=== PATIENT | female | born 1965 | race Caucasian/White ===

== ENCOUNTER → 2017-06-07 | Outpatient (CLI) | payer OTHER ==
[2017-06-07 18:36] LABS: Blood Urea Nitrogen 12 mg/dL (7-17)
--- NOTE | 2017-06-07 19:46 | CT ---
EXAMINATION TYPE: CT urogram wo/w con DATE OF EXAM: 06/07/2017 HISTORY: Hematuria and frequent UTI's. CT DLP: 706.2mGycm Automated Exposure Control for Dose Reduction was Utilized. CONTRAST: CT scan of the abdomen and pelvis is performed with IV Contrast, patient injected with 100ml mL of Om nipaque 350. COMPARISON: None. FINDINGS: Lung bases are clear. There is no pleural effusion. The liver spleen pancreas gallbladder appear norm al. Bile ducts are not dilated. Kidneys have normal size and contour. There is no hydronephrosis. The re is no evidence of a renal mass. There is no adrenal mass. There is satisfactory contrast opacifica tion. There is no retroperitoneal adenopathy. Ureters are not dilated. The bladder distends smoothly. There is no evidence of a pelvic mass. There is no ascites. I see no intestinal wall thickening. The re are no dilated loops. I see no bony destructive process. Appendix is not seen. Normal appendix. Conclusion Negative CT scan of the abdomen and pelvis. No evidence of urinary tract abnormality.
== END | disposition home or self-care (01) ==
LOC: RADCTMAIN 17:58
PROVIDERS: ATTEND Urology
DX: R31.9 Hematuria, unspecified (principal); Z88.1 Allergy status to other antibiotic agents
CPT/HCPCS: 82565; 84520; 74178; 36415; 74400; Q9967

== ENCOUNTER → 2017-08-23 | Outpatient (CLI) | payer OTHER ==
--- NOTE | 2017-08-25 11:13 | MM ---
Reason for exam: screening (asymptomatic). Last mammogram was performed 1 year and 8 months ago. History: Patient is postmenopausal. Family history of breast cancer in maternal grandmother at age 70. Physical Findings: A clinical breast exam by your physician is recommended on an annual basis and results should be correlated with mammographic findings. MG Screening Mammo w CAD Bilateral CC and MLO view(s) were taken. Prior study comparison: December 24, 2015, mammogram, performed at [facility]. October 19, 2011, mammogram, performed at [facility]. The breast tissue is heterogeneously dense. This may lower the sensitivity of mammography. Finding: There are stable, fine, diffuse/scattered calcifications in the left breast. No significant changes in finding since December 24, 2015 and October 19, 2011. ASSESSMENT: Benign, BI-RAD 2 RECOMMENDATION: Routine screening mammogram of both breasts in 1 year.
== END | disposition home or self-care (01) ==
LOC: RADMAMWWP 14:32
PROVIDERS: ATTEND Family Medicine
DX: Z12.31 Encounter for screening mammogram for malignant neoplasm of breast (principal)
CPT/HCPCS: 77067

== ENCOUNTER → 2019-03-23 | Outpatient (CLI) | payer OTHER ==
--- NOTE | 2019-03-25 04:45 | CT ---
EXAMINATION TYPE: CT abdomen pelvis wo/w con DATE OF EXAM: 03/23/2019 COMPARISON: 06/07/2017 HISTORY: 53-year-old female Frequent UTIs. TECHNIQUE: Contiguous axial scanning of the abdomen and pelvis before and after administration of 100 ml Isovue 300 IV contrast. Delayed images through the kidneys and coronal/sagittal reconstructions performed. CT DLP: 617.9 mGycm Automated exposure control for dose reduction was used. FINDINGS: Heart normal size without pericardial effusion. Lung bases show some mild stranding posterior left ba silar atelectasis. No pleural effusion. No focal liver lesion or biliary ductal dilatation. Portal venous system is patent. Gallbladder, right adrenal gland, kidneys, spleen, and pancreas appear within normal limits. No nephrolithiasis or hydronephrosis. Symmetric uptake and excretion of contrast from both kidneys. Mild diffuse thickening of the left adrenal gland is unchanged. No dilated small bowel, free fluid, or free air. No mesenteric or retroperitoneal lymphadenopathy. Normal appendix. Oral contrast progressed to the rectum. No pericolonic inflammatory change. Small fatty umbilical hernia. Bladder partially distended. Uterus is anteverted. Both ovaries are visualized. Possible 2.1 cm cysti c structure within the left ovary versus 1.5 cm on 06/07/2017. No abnormal fluid collection in the pel vis or pelvic lymphadenopathy. 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 Mild multilevel degenerative disc disease wi th bulging discs. IMPRESSION: 1. NO NEPHROLITHIASIS OR HYDRONEPHROSIS. 2. NO ACUTE INFLAMMATORY PROCESS IDENTIFIED IN THE ABDOMEN OR PELVIS. 3. A 2.1 CM POSSIBLE CYSTIC STRUCTURE OF THE LEFT OVARY INCREASED IN SIZE FROM 1.5 CM ON 06/07/2017. C ORRELATE WITH PATIENT'S MENOPAUSAL STATUS. IF POSTMENOPAUSAL, FURTHER ULTRASOUND EVALUATION IS RECOMM ENDED.
== END | disposition home or self-care (01) ==
LOC: RADCTMAIN 09:20
PROVIDERS: ATTEND Family Medicine
DX: N30.90 Cystitis, unspecified without hematuria (principal); Z88.1 Allergy status to other antibiotic agents
CPT/HCPCS: 74178; Q9967 ×2

== ENCOUNTER → 2019-04-19 | Outpatient (CLI) | payer OTHER ==
--- NOTE | 2019-04-19 09:26 | US ---
EXAMINATION TYPE: US pelvis complete transvag DATE OF EXAM: 04/19/2019 COMPARISON: CT March 23, [address] June 07, 2014 CLINICAL HISTORY: N39.0 RECURRENT UTI,N83.202 LT OVARIAN CYST. TECHNIQUE: Transvaginal (TV) and Transabdominal (TA) . Transabdominal sonographic images of the pel vis were acquired. Transvaginal sonographic images were medically necessary to better assess the fol lowing anatomy: left ovary. Date of LMP: postmenopausal, no HRT. EXAM MEASUREMENTS: Uterus: 7.1 x 2.7 x 3.8 cm Endometrial Stripe: 0.3 cm Right Ovary: 1.6 x 2.5 x 1.3 cm Left Ovary: 1.5 x 1.3 x 1.4 cm 1. Uterus: Anteverted wnl 2. Endometrium: wnl 3. Right Ovary: wnl 4. Left Ovary: apparent para ovarian cyst measures 1.9 x 2.0 x 1.7 cm. 5. Bilateral Adnexa: wnl 6. Posterior cul-de-sac: no free fluid IMPRESSION: Simple appearing 2.0 cm thin walled cyst left adnexa felt paraovarian location. It is sl ightly increased in size from May 2017. Still favored benign given paraovarian location. Consider surveillance imaging in one year
== END | disposition home or self-care (01) ==
LOC: RADUSWWP 08:49
PROVIDERS: ATTEND Family Medicine
DX: N83.292 Other ovarian cyst, left side (principal); Z88.1 Allergy status to other antibiotic agents
CPT/HCPCS: 76830; 76856

== ENCOUNTER → 2023-07-31 | Outpatient (CLI) | payer OTHER ==
--- NOTE | 2023-07-31 11:13 | CTL ---
EXAMINATION TYPE: CT Low Dose Lung DATE OF EXAM ORDERED: 07/31/2023 HISTORY: . Lung cancer screening CT DLP: 66.[address] CTDI: 1.7 mGy Automated exposure control for dose reduction was used. SCREENING VISIT: Initial. COMPARISON: 05/26/2010. TECHNIQUE: Low dose computed tomography scan was performed through the chest at 1 mm thick sections a nd reconstructed images in multiple planes at 1 mm and [address] DIAGNOSTIC QUALITY: Satisfactory FINDINGS: LUNG NODULES: LUNGS: COPD: Severity: None Fibrosis: Severity: None Lymph nodes: No adenopathy. Other findings: RIGHT PLEURAL SPACE: Effusion: None Calcification: None Thickening: None Pneumothorax: None LEFT PLEURAL SPACE: Effusion: None Calcification: None Thickening: None Pneumothorax: None HEART: Heart Size: Normal Coronary Calcification: None Pericardial Effusion: None OTHER FINDINGS: Upper abdomen: None Bony thorax: None Supraclavicular region: None Other: None IMPRESSION: 1. Negative lung cancer screening examination for significant pulmonary nodules. 2. Mild smoking related change. 3. No acute findings. CT LUNG RAD AND CT CHEST RECOMMENDATION: Lung-Rad 1 Negative: Continue annual screening with LDCT in 12 months.
== END | disposition home or self-care (01) ==
LOC: RADCTMAIN 09:25
PROVIDERS: ATTEND Family Medicine
DX: Z12.2 Encounter for screening for malignant neoplasm of respiratory organs (principal); F17.210 Nicotine dependence, cigarettes, uncomplicated
CPT/HCPCS: 71271

== ENCOUNTER → 2024-08-30 | Outpatient (CLI) | payer OTHER ==
--- NOTE | 2024-09-02 16:41 | CTL ---
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 TECHNIQUE: Low dose computed tomography scan was performed through the chest at 1 mm thick sections a nd reconstructed images in multiple planes at 1 mm and [address] DLP: 82.9 mGycm, CT CTDI: 2.0 mGy, Automated exposure control for dose reduction was used. CT DIAGNOSTIC QUALITY: Satisfactory FINDINGS: r the heart is normal size without pericardial effusion. Aorta normal caliber with conventional arch vessel branching anatomy. Scattered nonenlarged mediastinal lymph nodes. No thoracic lymphadenopathy by CT size criteria. Promi nent extension of the left thyroid lobe posteriorly along the left lateral wall of the esophagus, unc hanged. Strandy atelectasis and scarring at the lower lungs. Mild diffuse bronchial wall thickening. Mild emp hysematous change. Mild biapical pleural-parenchymal scarring. No consolidation or pleural effusion. 4 mm lateral right lower lung pulmonary nodule, axial image 188 appears new. 4 mm anterior left upper lung pulmonary nodule, axial image 58 is unchanged. 3 mm anterior lingular pulmonary nodule, axial image 134 appears new. Visualized upper abdomen shows no gross abnormality. Bones: Mild degenerative disc disease throughout. Some degenerative change at the sternomanubrial gia nt. IMPRESSION: 1. Lung RADS 2, benign. A few scattered pulmonary nodules measuring up to 4 mm. There is a 3 mm nodul e and 4 mm nodule which appear new on annual follow-up. 2. COPD with mild emphysema and scattered strandy scarring. Recommend smoking cessation. CT LUNG RAD AND CT CHEST RECOMMENDATION: Lung-Rad 2 Benign Appearance or Behavior: Continue annual sc reening with LDCT in 12 months. S Modifier (other clinically significant findings): None [facility], , 09/02/2024 4:39 PM
== END | disposition home or self-care (01) ==
LOC: RADCTMAIN 15:37
PROVIDERS: ATTEND Family Medicine
DX: Z12.2 Encounter for screening for malignant neoplasm of respiratory organs (principal); F17.210 Nicotine dependence, cigarettes, uncomplicated; R91.8 Other nonspecific abnormal finding of lung field; J43.9 Emphysema, unspecified; J44.9 Chronic obstructive pulmonary disease, unspecified; R91.1 Solitary pulmonary nodule
CPT/HCPCS: 71271

== ENCOUNTER → 2024-12-18 | Outpatient (CLI) | payer OTHER ==
--- NOTE | 2024-12-18 14:33 | US ---
EXAMINATION TYPE: US kidneys/renal and bladder DATE OF EXAM: 12/18/2024 COMPARISON: CLINICAL INDICATION: Female, 59 years old with history of N30.100 INTERTITIAL CYSTITIS; Cystitis, melo quent UTIs TECHNIQUE: Grayscale imaging of the bilateral kidneys and urinary bladder: FINDINGS: EXAM MEASUREMENTS: Right Kidney: 9.5 x 4.2 x 5.8 cm Left Kidney: 10.7 x 5.2 x 5.2 cm Right Kidney: No hydronephrosis or masses seen Left Kidney: No hydronephrosis or masses seen Bladder: wnl Bilateral Jets seen: Yes There is no evidence for hydronephrosis at this point in time. No nephrolithiasis is seen. No laura s are identified. The urinary bladder is anechoic. IMPRESSION: No discrete abnormality seen. [facility], , 12/18/2024 2:31 PM
--- NOTE | 2024-12-18 15:23 | US ---
EXAMINATION TYPE: US pelvic complete DATE OF EXAM: 12/18/2024 COMPARISON: CLINICAL INDICATION: Female, 59 years old with history of N30.100 INTERTITIAL CYSTITIS; History left adnexal cyst TECHNIQUE: Transabdominal (TA). Transabdominal grayscale sonographic images of the pelvis were acquired Doppler imaging: Not performed. FINDINGS: Date of LMP: Not available EXAM MEASUREMENTS: Uterus: 7.4 x 2.7 x 4.3 cm Endometrial Stripe: 0.2 cm Right Ovary: 2.0 x 1.1 x 1.4 cm Left Ovary: 1.2 x 0.9 x 1.4 cm 1. Uterus: Anteverted wnl 2. Endometrium: wnl 3. Right Ovary: wnl 4. Left Ovary: wnl 5. Bilateral Adnexa: Right adnexa wnl. Anechoic area seen in left adnexa adjacent to the left ovary measuring 1.6 x 0.9 x 0.8 cm 6. Posterior cul-de-sac: wnl IMPRESSION: Probable Functional ovarian cyst left adnexa. O-RADS 2021 [email or web address] [email or web address], , 12/18/2024 3:20 PM
== END | disposition home or self-care (01) ==
LOC: RADUSWWP 13:18
PROVIDERS: ATTEND Family Medicine
DX: N30.10 Interstitial cystitis (chronic) without hematuria (principal)
CPT/HCPCS: 76770; 76856